=== PATIENT | male | born 1980 | race Caucasian/White ===

== ENCOUNTER → 2017-08-25 | Outpatient (CLI) | payer MEDICAID ==
[~2017-08-25] MED LIST: ALPR0.25 PO; CARI350T PO; DIAZ5TAB PO; ESCI20TA PO; GABA300C10 PO; HYDR2TAB29 PO; MELA10TA PO; METH750T87 PO; MORP-52 PO; QUET25TA5 PO; TRAM-47 PO
== END | disposition home or self-care (01) ==
LOC: RAD 10:52
PROVIDERS: ATTEND Neurological Surgery
DX: M43.17 Spondylolisthesis, lumbosacral region (principal)
CPT/HCPCS: 72110